=== PATIENT | female | born 1970 | race Caucasian/White ===

== ENCOUNTER 2017-05-21 23:21 | Emergency (ER) | payer OTHER ==
[~2017-05-21] VITALS: Ht 167.6 cm; Wt 91.0 kg
[2017-05-21] MEDS ORDERED: LEVOTHYROXIN75 MCG PO (23:35)
[2017-05-21] MEDS ORDERED: LORAZEPAM0.5 MG PO (23:35)
[2017-05-22 00:38] LABS: HEMATOCRIT 36.2 % (37.0-47.0); HEMOGLOBIN 12.2 g/dl (12.0-16.0); IMMATURE GRANULOCYTES 0.2 % (0.0-1.0); MEAN CORPUSCULAR HGB 31.7 pG CALC (26.0-32.0); MEAN CORPUSCULAR HGB CONC 33.7 g/L CALC (32.0-36.0); NEUT# 4.56 thou/uL (2.00-7.15); RED BLOOD COUNT 3.85 mill/uL (4.20-5.60); RED CELL DISTRI WIDTH 12.4 % (11.5-15.5); URINE BILIRUBIN - DIPSTICK NEGATIVE (NEGATIVE); URINE BLOOD DIPSTICK NEGATIVE (NEGATIVE); URINE COLOR YELLOW; URINE GLUCOSE - DIPSTICK NEGATIVE (NEGATIVE); URINE KETONE NEGATIVE (NEGATIVE); URINE LEUK ESTERASE NEGATIVE (NEGATIVE); URINE NITRITE - DIPSTICK NEGATIVE (Negative); URINE PROTEIN - DIPSTICK NEGATIVE (NEG-TRACE); URINE SPECIFIC GRAVITY 1.015; URINE UROBILINOGEN - DIPSTICK 0.2 E.U./dL (0.2)
[2017-05-22 00:39] LABS: URINE CLARITY CLOUDY
[2017-05-22 00:45] LABS: URINE BACTERIA FEW hpf; URINE RBC 0-2 RBC/hpf (0-5); URINE SQUAMOUS EPITHELIAL CELL MODERATE EPI/hpf (0-FEW); URINE WBC 0-2 WBC/hpf (0-5)
[2017-05-22 00:46] LABS: URINE AMORPH SEDIMENT MANY hpf (NONE-FEW); URINE MUCUS FEW hpf (NONE-FEW)
[2017-05-22 01:02] LABS: ALBUMIN 3.4 g/dL (3.2-5.0); ALKALINE PHOSPHATASE 90 u/l (38-126); ANION GAP 13 (6-22 (CALC)); BILIRUBIN, TOTAL 0.2 mg/dL (0.0-1.4); BUN 10 mg/dL (7-17); BUN/CREATININE RATIO 15 (12-20 (CALC)); CALCIUM 8.7 mg/dL (8.4-10.2); CARBON DIOXIDE 24 mmol/l (22-30); CHLORIDE 108 mmol/l (95-108); CREATININE 0.7 mg/dL (0.5-1.0); GFR > 60 ML/MIN (>=60 (CALC)); GFR FOR AFR.AMER. > 60 ML/MIN (>=60 (CALC)); GLUCOSE 104 mg/dL (65-105); POTASSIUM 3.5 mmol/l (3.5-5.1); SGOT/AST 17 u/l (14-36); SGPT/ALT 31 u/l (9-52); SODIUM 142 mmol/l (137-146); TOTAL PROTEIN 6.2 g/dL (6.3-8.2)
[2017-05-22 01:44] LABS: MYOGLOBIN 21 ng/mL (0 - 62)
[2017-05-22 02:12] VITALS: BP 121/60
[2017-05-22 02:42] LABS: TSH, 3RD GENERATION 12.3 uIU/mL (0.47 - 4.68)
== END 2017-05-22 02:12 | disposition home or self-care (01) | DRG 948 ==
LOC: ED 23:21
PROVIDERS: Emergency Medicine
DX: R60.0 Localized edema (principal); E03.9 Hypothyroidism, unspecified; F17.210 Nicotine dependence, cigarettes, uncomplicated; F41.0 Panic disorder [episodic paroxysmal anxiety]